=== PATIENT | male | born 1965 | race Hispanic/Latino ===

== ENCOUNTER 2019-05-08 01:23 | Emergency (ER) | payer BC ==
[~2019-05-08] VITALS: Ht 175.3 cm; Wt 113.4 kg
[2019-05-08] MEDS ORDERED: SODIUM CHLORIDE 0.9% 1000ML 1,000 ML IV SCH (01:30)
--- NOTE | 2019-05-08 02:55 | NUR ---
BG 314, MD AWARE, NO FURTHER ORDERS
[2019-05-08 03:08] VITALS: BP 112/77
== END 2019-05-08 03:25 | disposition home or self-care (01) ==
LOC: ER 01:23
DX: F10.120 Alcohol abuse with intoxication, uncomplicated (principal); E11.65 Type 2 diabetes mellitus with hyperglycemia
CPT/HCPCS: 36415; 82948; 99283; J7030

== ENCOUNTER 2021-10-28 17:02 | Inpatient (IN) | payer BC, OTHER ==
[~2021-10-28] VITALS: Ht 175.3 cm; Wt 113.4 kg
[2021-10-28 17:33] LABS: BASOPHILS % 0.4 % (0.0-1.0); EOSINOPHILS # (AUTO) 0.1 (0.0-0.4); EOSINOPHILS % 1.4 % (0.0-6.0); HEMATOCRIT 40.1 % (38.2-49.6); HEMOGLOBIN 13.3 g/dL (14.0-18.0); LYMPHOCYTES # (AUTO) 1.9 (1.0-3.2); LYMPHOCYTES % 20.6 % (18.0-39.1); MEAN CORPUSCULAR HEMOGLOBIN 29.4 pg (28-32); MEAN CORPUSCULAR HGB CONC 33.2 g/dL (31-35); MEAN CORPUSCULAR VOLUME 88.7 fL (81-99); MONOCYTES # (AUTO) 0.8 (0.2-0.8); MONOCYTES % 8.2 % (4.4-11.3); NEUTROPHILS # (AUTO) 6.3 (2.1-6.9); NEUTROPHILS % 69.1 % (38.7-80.0); PLATELET COUNT 195 x10e3/uL (140-360); RED BLOOD COUNT 4.52 x10e6/uL (4.3-5.7); RED CELL DISTRIBUTION WIDTH 13.1 % (11.7-14.4)
[2021-10-28 17:54] LABS: ALBUMIN/GLOBULIN RATIO 1.1 (0.8-2.0); ANION GAP 15.1 mmol/L (8-16); CALCIUM 8.7 mg/dL (8.4-10.2); CREATININE, SERUM 1.26 mg/dL (0.72-1.25); POTASSIUM 4.1 mmol/L (3.5-5.1)
[2021-10-28 18:00] LABS: CREATINE KINASE MB 1.8 ng/mL (0-5.0)
[2021-10-28 18:09] LABS: AMPHETAMINES SCREEN,URINE NEGATIVE (NEGATIVE); BENZODIAZEPINES SCREEN,URINE NEGATIVE (NEGATIVE); PHENCYCLIDINE SCREEN,URINE NEGATIVE (NEGATIVE)
[2021-10-28] MEDS ORDERED: Morphine 4mg Syringe 4 MG/ML INJ IV PRN (19:15)
[2021-10-28] MEDS ORDERED: ONDANSETRON HCL INJ 2MG/ML 2ML 2 MG/ML VIAL IV PRN (19:15)
[2021-10-28] MEDS ORDERED: ASPIRIN 81 MG CHEW TAB PO ONE (19:15)
[2021-10-28 21:48] VITALS: BP 107/65
[2021-10-28 22:00] VITALS: BP 107/65
[2021-10-28] MEDS ORDERED: GLIMEPIRIDE2 MG PO (22:16)
[2021-10-28] MEDS ORDERED: BENICAR20 MG PO (22:16)
[2021-10-28] MEDS ORDERED: NEURONTIN300 MG PO (22:16)
[2021-10-28] MEDS ORDERED: METFORMIN HCL500 MG PO (22:16)
[2021-10-28] MEDS: INSULIN LISPRO 100 UNIT/1 ML 3ML VIAL SQ SCH (22:30)
[2021-10-28] MEDS ORDERED: DEXTROSE 50% SYRINGE 50 ML IV PRN (22:30)
[2021-10-28] MEDS ORDERED: ASPIRIN 81 MG CHEW TAB ONE (22:56)
[2021-10-28] MEDS: GABAPENTIN 300 MG CAP PO SCH (23:18)
[2021-10-29] VITALS (7 sets, daily range): BP systolic 113–153; BP diastolic 60–91
[2021-10-29] MEDS ORDERED: DOCUSATE SODIUM 100 MG CAP PO PRN (01:30)
[2021-10-29] MEDS ORDERED: ACETAMINOPHEN 325 MG TAB PO PRN (01:30)
[2021-10-29] MEDS ORDERED: SIMETHICONE 80 MG CHEW PO PRN (01:30)
[2021-10-29] MEDS ORDERED: ALBUTEROL/IPRATROPIUM 3 ML NEB NEB PRN (01:30)
[2021-10-29] MEDS ORDERED: DEXTROSE 50% SYRINGE 50 ML IV PRN (01:30)
[2021-10-29] MEDS ORDERED: HYDRALAZINE HCL 20 MG/ML VIAL IV PRN (01:30)
[2021-10-29] MEDS ORDERED: MELATONIN 5 MG TABLET PO PRN (01:30)
[2021-10-29] MEDS ORDERED: BENZONATATE 100 MG CAP PO PRN (01:30)
[2021-10-29] MEDS ORDERED: DIPHENHYDRAMINE HCL 25 MG CAP PO PRN (01:30)
[2021-10-29] MEDS ORDERED: PHENAZOPYRIDINE HCL 100 MG TAB PO PRN (01:30)
[2021-10-29] MEDS ORDERED: LIDOCAINE 4% PATCH TP PRN (01:30)
[2021-10-29] MEDS ORDERED: TRAMADOL HCL 50 MG TAB PO PRN (01:30)
[2021-10-29] MEDS ORDERED: ONDANSETRON HCL INJ 2MG/ML 2ML 2 MG/ML VIAL IV PRN ×2 (01:30)
[2021-10-29 02:27] LABS: CREATINE KINASE MB 1.3 ng/mL (0-5.0)
[2021-10-29] MEDS ORDERED: Morphine 2mg Syringe 2 MG/ML SYR IV PRN (03:15)
[2021-10-29 05:36] LABS: BASOPHILS % 0.5 % (0.0-1.0); EOSINOPHILS # (AUTO) 0.2 (0.0-0.4); EOSINOPHILS % 2.2 % (0.0-6.0); HEMATOCRIT 36.8 % (38.2-49.6); HEMOGLOBIN 12.1 g/dL (14.0-18.0); LYMPHOCYTES # (AUTO) 2.6 (1.0-3.2); LYMPHOCYTES % 30.1 % (18.0-39.1); MEAN CORPUSCULAR HEMOGLOBIN 29.6 pg (28-32); MEAN CORPUSCULAR HGB CONC 32.9 g/dL (31-35); MONOCYTES # (AUTO) 0.7 (0.2-0.8); MONOCYTES % 8.4 % (4.4-11.3); NEUTROPHILS % 58.4 % (38.7-80.0); PLATELET COUNT 165 x10e3/uL (140-360); RED BLOOD COUNT 4.09 x10e6/uL (4.3-5.7); RED CELL DISTRIBUTION WIDTH 13.2 % (11.7-14.4)
[2021-10-29 06:04] LABS: ALBUMIN 3.4 g/dL (3.5-5.0); ANION GAP 13.7 mmol/L (8-16); CALCIUM 8.5 mg/dL (8.4-10.2); CREATININE, SERUM 0.82 mg/dL (0.72-1.25); POTASSIUM 3.7 mmol/L (3.5-5.1)
[2021-10-29 06:05] LABS: CHOL/HDL RATIO 3.5 (3.9-4.7); MAGNESIUM 1.5 MG/DL (1.3-2.1)
[2021-10-29 06:25] LABS: THYROID STIMULATING HORMONE 2.037 uIU/mL (0.350-4.940)
[2021-10-29] MEDS: INSULIN LISPRO 100 UNIT/1 ML 3ML VIAL SQ SCH ×4 (07:30→21:11)
[2021-10-29] MEDS ORDERED: OLMESARTAN 20 MG TAB PO SCH (09:00)
[2021-10-29 10:54] LABS: CREATINE KINASE MB 1.1 ng/mL (0-5.0)
[2021-10-29] MEDS ORDERED: ASPIRIN 81 MG CHEW TAB PO SCH (12:00)
[2021-10-29] MEDS ORDERED: REGADENOSON 0.4 MG/5 ML SYR IV ONE (14:50)
[2021-10-29] MEDS ORDERED: ENOXAPARIN SOD INJ 40 MG/0.4 ML SYR SC SCH (17:00)
[2021-10-29] MEDS: GABAPENTIN 300 MG CAP PO SCH (21:09)
[2021-10-30] MEDS ORDERED: ASPIRIN 81 MG CHEW TAB PO SCH (09:00)
[2021-10-30] MEDS ORDERED: METOPROLOL SUCCINATE 25 MG TAB XL PO SCH (09:00)
== END 2021-10-29 21:45 | disposition home or self-care (01) | DRG 313 ==
LOC: ER 17:18 → ERHOLD 19:18 → MED/SURG 21:26 → OBSVTOIN 10-29 17:10
PROVIDERS: ADMIT Internal Medicine; ATTEND Internal Medicine
DX: R07.89 Other chest pain (principal); E66.01 Morbid (severe) obesity due to excess calories; Z68.36 Body mass index [BMI] 36.0-36.9, adult; E11.9 Type 2 diabetes mellitus without complications; E78.5 Hyperlipidemia, unspecified; Z20.822 Contact with and (suspected) exposure to COVID-19; I67.1 Cerebral aneurysm, nonruptured; Z86.79 Personal history of other diseases of the circulatory system
CPT/HCPCS: 36415; 71045; 78452; 80053; 80061; 80307; 82550; 82553; 82948; 83036; 83735; 83880; 84100; 84443; 84484; 85025; 85379; 93005; 93017; 93306; 94799; 96372; 99284; A9502; G0378; J1650; U0002